=== PATIENT | female | born 1980 | race American Indian/Alaskan Native ===

== ENCOUNTER 2017-05-04 18:59 | Outpatient (CLI) | payer MEDICAID ==
[2017-05-04 19:35] VITALS: BP 126/70
[2017-05-04] MEDS ORDERED: LACTATED RINGERS 1,000 ML IV SCH (23:00)
== END 2017-05-05 00:34 | disposition home or self-care (01) ==
LOC: TRG 18:59
PROVIDERS: ATTEND Obstetrics & Gynecology
DX: O09.523 Supervision of elderly multigravida, third trimester (principal); O26.893 Other specified pregnancy related conditions, third trimester; R25.2 Cramp and spasm; R10.9 Unspecified abdominal pain; M54.9 Dorsalgia, unspecified; R11.0 Nausea; Z3A.38 38 weeks gestation of pregnancy
CPT/HCPCS: 59025; 96360; J7120

== ENCOUNTER 2017-05-06 07:34 | Inpatient (IN) | payer MEDICAID ==
--- NOTE | 2017-05-05 17:23 | History and Physical Report ---
History of Present Illness Date of examination: 05/06/17 Date of admission: 05/06/2017 Chief complaint: low-lying placenta History of present illness: 37y/o @ 39+1 weeks presents for a scheduled primary for a low- lying placenta. It was recommended by MFM that the patient proceed with a . She denies leakage of fluid or vaginal bleeding. She transferred her care @ 21 weeks ega. course also complicated by AMA and +GBS status. Past History Past Medical History: no pertinent history Past Surgical History: no surgical history Social history: single - Obstetrical History Expected Date of Delivery: 05/12/17 Actual Gestation: 39 Week(s) 1 Day(s) : 7 Para: 4 Hx # Term Pregnancies: 4 Number of Pregnancies: 0 Spontaneous Abortions: 0 Induced : 2 Number of Living Children: 4 Medications and Allergies Allergies Allergy/AdvReac Type Severity Reaction Status Date / Time No Known Allergies Allergy Verified 05/04/17 22:08 Home Medications Medication Instructions Recorded Confirmed Last Taken Type Pnv Plus Multivit Tab 1 caplet PO HS 05/06/17 05/06/17 1 Day Ago History ~05/05/17 1 Review of Systems All systems: negative Genitourinary: no vaginal bleeding, no leakage of fluid, no contractions - Physical Exam Breasts: Positive: deferred Cardiovascular: Regular rate Lungs: Positive: Clear to auscultation Abdomen: Positive: normal appearance Results Result Diagrams: 05/06/17 08:00 All other labs normal. Assessment and Plan - Patient Problems (1) Low lying placenta nos or without hemorrhage, third trimester Current Visit: Yes Status: Acute Plan to address problem: proceed with a primary delivery (2) Advanced maternal age (AMA) in Current Visit: Yes Status: Acute (3) GBS carrier Current Visit: Yes Status: Acute
[~2017-05-06 07:34] MED LIST: ANCEF/STERILE WATER 2 GM/20 ML 2 GM/20 ML SYRINGE IV NR; BICITRA PO ONE; LACTATED RINGERS 1,000 ML IV SCH; PEPCID IV SCH; PITOCin/NS 20 UNIT/1000ML DRIP 20 UNITS/1,000 ML BAG IV SCH; REGLAN IV SCH
[2017-05-06 08:22] LABS: Basophils % (Auto) 1.3 % (0.0-1.8); Eosinophils % (Auto) 1.6 % (0.0-4.3); Hematocrit 33.5 % (30.3-42.9); Hemoglobin 11.5 gm/dl (10.1-14.3); Mean Corpuscular HGB Conc 34 % (30-34); Mean Corpuscular Hemoglobin 30 pg (28-32); Mean Corpuscular Volume 88 fl (79-97); Platelet Count 119 K/mm3 (140-440); Red Blood Count 3.79 M/mm3 (3.65-5.03); Red Cell Distribution Width 13.1 % (13.2-15.2); White Blood Count 5.6 K/mm3 (4.5-11.0)
[2017-05-06] MEDS ORDERED: BICITRA ONE (08:30)
[2017-05-06] MEDS ORDERED: BICITRA PO ONE (08:37)
--- NOTE | 2017-05-06 08:45 | Procedure Note ---
OB Delivery Note - Delivery Date of Delivery: 05/06/17 Surgeon: NICOLE SCHWARTZ Estimated blood loss: other (1200ml) - Section Preop diagnosis: other (low-lying placenta) Postop diagnosis: same section procedure: section, primary low transverse Disposition: PACU Complications: none - A at 1 minute: 8 at 5 minutes: 9 Infant Gender: Female (weight 6lbs 10oz)
--- NOTE | 2017-05-06 08:47 | Operative Report ---
Operative Report Operative Report: Date of surgery: 05/06/2017 Preoperative diagnosis: at 39+ weeks; Low lying placenta Postoperative diagnosis: Same as above Procedure: Primary low transverse delivery Surgeon: Chrissy Scott M.D. Anesthesia: Regional Estimated blood loss: 1200 mL IV fluids: 2500 mL Urine output: 150 mL Findings: Liveborn female infant with Apgars of 8 and 9 weight 6 lbs. 10 oz. Indications: 37-year-old 0-4 at 39+1 weeks who presents for a primary delivery secondary to findings of a low-lying placenta. Per recommendation of maternal medicine and it was advised that the patient proceed with a delivery secondary to the concern for intrapartum bleeding. Procedure: The patient was taken to the operating room and given regional anesthesia without complication. She was prepped and draped in a normal sterile fashion. A Pfannenstiel skin incision was made down to layer the fascia which was nicked in the midline extended laterally with the Bovie cautery. The superior aspect of the rectus fascia was grasped with Braxton clamps x2 and the rectus muscles off sharply. This was done in inferior fashion as well. The rectus muscle midline and peritoneum entered bluntly. An Bobby retractor was then inserted. A bladder blade was placed. The vesicouterine peritoneum was then entered sharply with Metzenbaum scissors. A bladder flap was created digitally. The lower uterine segment was thickened and unlabored. A low transverse uterine incision was then made and extended digitally. There was clear fluid upon entry into the uterine cavity. The head was delivered through the incision with fundal pressure. A loose nuchal cord was manually reduced. The cord was clamped and cut x2 and infant was passed off to pediatrics. The placenta was then manually extracted and sent to pathology. The placenta had demonstrated evidence of enlarged vessels that were coursing through the membranes. The uterus was then exteriorized and cleared of clots and debris. The uterine incision was then closed in a running locked fashion with 0 Vicryl additional imbricating stitch was applied for 2 layer closure. Experienced continued bleeding coming from the incision. An additional imbricating stitch was applied with figure-of- eight stitches for hemostasis. The serosa was then reapproximated with 3-0 Vicryl. The posterior cul-de-sac was then copiously irrigated. The uterus was replaced back into the abdomen and pelvis were the gutters were then irrigated. The Bobby retractor was then removed. The peritoneum was then reapproximated with 3-0 Vicryl incorporating the rectus muscle. The fascia was then closed with 0 Vicryl in a running fashion. The skin was then reapproximated with 3-0 Monocryl on a Shaquille needle subcuticular fashion. Steri-Strips to place across the incision and a Crede procedures performed at the end of the surgery. A pressure dressing was applied to the incision. The surgery productive of a liveborn female with Apgars of 8 and 9 weight of 6 lbs. 10 oz. The patient was taken to the recovery room in stable condition. All sponge laps and needle counts correct x2.
[2017-05-06] MEDS ORDERED: MORPHINE ONE (08:56)
--- NOTE | 2017-05-06 09:13 | Anesthesia Consultation ---
Anesthesia Consult and Med Hx Date of service: 05/06/17 - Airway Anesthetic Teeth Evaluation: Good ROM Head & Neck: Adequate Mental/Hyoid Distance: Adequate Mallampati Class: Class II Intubation Access Assessment: Probably Good - Pulmonary Exam CTA: Yes - Cardiac Exam Cardiac Exam: RRR - Pre-Operative Health Status ASA Pre-Surgery Classification: ASA2 Proposed Anesthetic Plan: Spinal - Pulmonary Hx Asthma: No COPD: No - Cardiovascular System Hx Hypertension: No - Central Nervous System Hx Seizures: No Hx Psychiatric Problems: No - Endocrine Hx Renal Disease: No Hx End Stage Renal Disease: No Hx Hypothyroidism: No Hx Hyperthyroidism: No - Hematic Hx Anemia: No Hx Sickle Cell Disease: No - Other Systems Hx Alcohol Use: No
--- NOTE | 2017-05-06 09:14 | Anesthesia Day of Surgery ---
Anesthesia Day of Surgery - Day of Surgery Patient Examined: Yes Patient H&P Reviewed: Yes Patient is NPO: Yes (NPO)
[2017-05-06] MEDS ORDERED: TYLENOL PO PRN (09:30)
[2017-05-06] MEDS ORDERED: MORPHINE IV PRN (09:30)
[2017-05-06] MEDS ORDERED: NARCAN 0.4 MG/1 ML IV PRN (09:30)
[2017-05-06] MEDS ORDERED: TUCKS PAD TP PRN (09:30)
[2017-05-06] MEDS ORDERED: D5LR 1,000 ML IV SCH (09:30)
[2017-05-06] MEDS ORDERED: TORADOL IV PRN (09:30)
[2017-05-06] MEDS ORDERED: NEO SYNEPHRINE/NS Syringe(OR USE) IV ONE (09:47)
[2017-05-06] MEDS ORDERED: ZOFRAN ONE (09:54)
[2017-05-06] MEDS ORDERED: MOTRIN PO PRN (10:00)
[2017-05-06] MEDS ORDERED: ZOFRAN IV PRN (10:00)
[2017-05-06] MEDS ORDERED: LANSINOH TP PRN (10:00)
[2017-05-06] MEDS ORDERED: SODIUM CHLORIDE FLUSH SYRINGE 10 ML IV PRN (10:00)
[2017-05-06] MEDS ORDERED: MYLICON PO PRN (10:00)
[2017-05-06] MEDS ORDERED: PITOCin/NS 20 UNIT/1000ML DRIP 20 UNITS/1,000 ML BAG IV SCH (10:00)
[2017-05-06] MEDS ORDERED: WATER FOR IRRIG STERILE IR ONE (10:20)
[2017-05-06] MEDS ORDERED: NACL 0.9% IR ONE (10:20)
[2017-05-06] MEDS ORDERED: ePHEDrine SULFATE ONE (10:46)
--- NOTE | 2017-05-06 10:49 | Post Anesthesia Evaluation ---
- Post Anesthesia Evaluation Patient Participated: Yes Airway Patent: Yes Stable Respiratory Function: Yes Temp > 96.8F: Yes Pain Manageable: Yes Adequeate Hydration: Yes Anesthesia Complications: No Block Receding Appropriately: Yes
[2017-05-06 11:39] LABS: Hematocrit 29.9 % (30.3-42.9); Hemoglobin 10.1 gm/dl (10.1-14.3)
[2017-05-06] MEDS ORDERED: BENADRYL IV PRN (13:00)
[2017-05-06 19:47] LABS: Hematocrit 26.5 % (30.3-42.9); Hemoglobin 8.9 gm/dl (10.1-14.3)
[2017-05-06] MEDS ORDERED: MILK OF MAGNESIA PO PRN (22:00)
[2017-05-07] MEDS: PERCOCET 5/325 PO PRN ×2 (07:30→16:32)
--- NOTE | 2017-05-07 16:30 | Progress Note ---
Assessment and Plan o; VSS AF PP H/H: 8.9/26.5 A: Stable POD #1 Anemia P: Routine PP orders Subjective - Subjective Date of service: 05/07/17 Patient reports: appetite normal, voiding normally, pain well controlled, flatus (minimal), ambulating normally : doing well Objective - Vital Signs Latest vital signs: Vital Signs Temp Pulse Resp BP Pulse Ox 05/07/17 09:06 99.3 F 90 20 116/56 98 05/07/17 00:00 98.6 F 69 16 112/72 05/06/17 20:30 98.6 F 66 16 117/68 05/06/17 16:45 97.9 F 71 18 109/64 99 Intake and Output 05/07/17 05/07/17 05/07/17 06:59 14:59 22:59 Intake Total 600 360 Output Total 400 Balance 600 -40 Intake: Oral 360 Intake, Free Water 600 Output: Urine 400 Void 400 Other: Total, Intake Amount 120 Total, Output Amount 400 # Voids Void 1 - Exam Breasts: Present: deferred Lungs: Present: Normal air movement Abdomen: Present: normal appearance, soft, tenderness, normal bowel sounds. Absent: distention Vulva: both: normal Uterus: Present: normal, firm, fundal height below umbilicus. Absent: bogginess , tenderness Extremities: Present: normal Incision: Present: normal, dry, intact - Labs Labs: Abnormal lab results 05/06/17 Range/Units 19:28 Hgb 8.9 L (10.1-14.3) gm/dl Hct 26.5 L (30.3-42.9) %
[2017-05-08] MEDS: FEOSOL PO SCH ×2 (00:32→09:25)
[2017-05-08] MEDS: PERCOCET 5/325 PO PRN (06:15)
--- NOTE | 2017-05-08 08:37 | Progress Note ---
Assessment and Plan A: Stable POD #2 Anemia P: discharge Subjective - Subjective Date of service: 05/08/17 Patient reports: appetite normal, voiding normally, pain well controlled, flatus (gas pain), ambulating normally, other Ronda: doing well, nursing well Objective - Vital Signs Latest vital signs: Vital Signs Temp Pulse Resp BP Pulse Ox 05/08/17 00:30 98.6 F 69 16 101/68 05/07/17 18:15 99.2 F 05/07/17 16:42 101.3 F H 73 20 138/64 05/07/17 09:06 99.3 F 90 20 116/56 98 Intake and Output 05/07/17 05/08/17 05/08/17 22:59 06:59 14:59 Intake Total 240 800 Balance 240 800 Intake: Oral 240 200 Intake, Free Water 600 Other: Total, Intake Amount 240 200 # Voids Void 1 - Exam Breasts: Present: deferred Lungs: Present: Normal air movement Abdomen: Present: normal appearance, soft, normal bowel sounds. Absent: distention Vulva: both: normal Uterus: Present: normal, firm, fundal height below umbilicus (3 below U, ML). Absent: bogginess, tenderness Extremities: Present: normal Incision: Present: normal, dry, intact, dressed
--- NOTE | 2017-05-08 08:41 | Discharge Summary ---
Providers - Providers Date of Admission: 05/06/17 07:34 Date of discharge: 05/08/17 Attending physician: NICOLE SCHWARTZ Primary care physician: NICOLE SCHWARTZ Hospitalization Reason for admission: section, IUP at term Delivery: Procedure: primary low transverse Episiotomy: none Incision: normal, dry, intact Other procedures: none complications: none Discharge diagnosis: IUP at term delivered [place] baby: female Condition at discharge: Good Disposition: DC-[id number] TO HOME OR SELFCARE Plan - Discharge Medications Prescriptions: Docusate Sodium [Colace] 100 mg PO BID PRN #60 capsule PRN Reason: Constipation Ferrous Sulfate [Feosol 325 MG tab] 325 mg PO BID #60 tablet Ibuprofen [Motrin] 800 mg PO Q8HR PRN #60 tablet PRN Reason: Pain Oxycodone HCl/Acetaminophen [Percocet 7.5/325 mg] 1 each PO Q6HR PRN #45 tablet PRN Reason: Pain - Provider Discharge Summary Activity: routine, no sex for 6 weeks, no heavy lifting 4 weeks, no strenuous exercise Diet: routine Instructions: routine Additional instructions: [] Smoking cessation referral if applicable(refer to patient education folder for contact #) [] Refer to [facility] Call your doctor immediately for: * Fever > 100.5 * Heavy vaginal bleeding ( >1 pad per hour) * Severe persistent headache * Shortness of breath * Reddened, hot, painful area to leg or breast * Drainage or odor from incision. * Keep incision clean and dry at all times and follow doctor's instructions regarding bathing/showering - Follow up plan Follow up: NICOLE SCHWARTZ MD [Primary Care Provider] - 7 Days (RTO 2 weeks )
[2017-05-08 16:12] VITALS: BP 121/66
== END 2017-05-08 14:00 | disposition home or self-care (01) | DRG 765 ==
LOC: APU 07:34 → OB 11:59 → UNDODISIN 05-07 17:53
PROVIDERS: ADMIT Obstetrics & Gynecology; ATTEND Obstetrics & Gynecology
PROC: 10D00Z1 Extraction of Products of Conception, Low, Open Approach (ICD-10-PCS; principal; 2017-05-06)
DX: O44.43 Low lying placenta NOS or without hemorrhage, third trimester (principal); R71.0 Precipitous drop in hematocrit; O99.02 Anemia complicating childbirth; O99.824 Streptococcus B carrier state complicating childbirth; Z3A.39 39 weeks gestation of pregnancy; Z37.0 Single live birth
CPT/HCPCS: 36415; 85014; 85018; 85025; 86850; 86900; 86901; 88307; J0690; J1200; J1885; J2270; J2370; J2405; J2590; J2765; J7120; J7121